=== PATIENT | male | born 1945 | race Caucasian/White ===

== ENCOUNTER 2017-01-12 12:29 | Outpatient (CLI) | payer MEDICARE, OTHER ==
[2017-01-12 12:51] LABS: BASOPHILS % 0.7 (0.0-1.5); EOSINOPHILS % 0.3 % (0.0-6.8); MEAN CORPUSCULAR HEMOGLOBIN 32.4 pg (28.0-34.0); MEAN CORPUSCULAR VOLUME 97.3 fl (80.0-100.0); MONOCYTES % 3.8 % (0.0-11.0); NEUTROPHILS # 4.8 # k/uL (1.4-7.7)
[2017-01-12 12:59] LABS: APPEARANCE,URINE Clear (CLEAR); COLOR,URINE Yellow (YELLOW); OCCULT BLOOD,URINE Negative (NEGATIVE); UROBILINOGEN URINE 0.2 Eu (0.2-1.0)
[2017-01-12 13:16] LABS: eGFR (African) > 60; eGFR (Non-African) 58
[2017-01-12 13:19] LABS: AMORPHOUS SEDIMENT,UR FEW (NEGATIVE)
--- NOTE | 2017-01-12 15:17 | Diagnostic Imaging Report ---
SHERIF OBRIEN [facility] [address] [facility] [address] [place], [place]. [address] Report Submission Date: Jan 12, 2017 1:27:43 PM CDT Patient Study Name: JESUS MARTINEZ Date: Jan 12, 2017 1:00:13 PM CDT Modality Type: CT\SR Gender: M Description: CT BRAIN W/O CONTRAST : 49 Institution: [facility] Physician: SHERIF OBRIEN Examination: CT head without contrast History: Syncope, Fall Comparison exam: None available Technique: Noncontrast head CT protocol. Findings: Ventricles and sulci are mildly prominent, though consistent for patient age. Cerebrocerebellar parenchyma demonstrates periventricular low attenuation consistent with small vessel disease. No evidence for parenchymal hemorrhage. No evidence for mass or mass effect. No midline shift. No extra axial fluid collections. Partial visualization of the paranasal sinuses demonstrates mild mucous thickening. Mastoid air cells, orbits, and skull without gross regularity. Right superior orbital soft tissue hematoma. Impression: Age related changes. No acute parenchymal process. No hemorrhage. If symptoms persist, consider obtaining MRI brain to further evaluate. Right superior orbital soft tissue hematoma. If suspect orbital fracture, consider obtaining CT facial bone examination. Electronically signed on Jan 12, 2017 1:27:43 PM CDT by: Vito ODEN
== END 2017-01-12 12:30 ==
LOC: RAD 12:29
PROVIDERS: ATTEND Family Medicine
DX: R55 Syncope and collapse (principal)
CPT/HCPCS: 36415; 70450; 80053; 81002; 85025

== ENCOUNTER 2017-01-19 10:14 | Outpatient (CLI) | payer MEDICARE, OTHER ==
[2017-01-19 10:55] LABS: eGFR (African) > 60; eGFR (Non-African) > 60
== END 2017-01-19 10:30 ==
LOC: LAB 10:14
PROVIDERS: ATTEND Family Medicine
DX: E87.1 Hypo-osmolality and hyponatremia (principal)
CPT/HCPCS: 36415; 80048

== ENCOUNTER 2018-02-02 11:06 | Outpatient (CLI) | payer MEDICARE, OTHER ==
[2018-02-02 11:59] LABS: eGFR (African) > 60; eGFR (Non-African) > 60
== END 2018-02-02 11:08 ==
LOC: LAB 11:06
PROVIDERS: ATTEND Family Medicine
DX: I10 Essential (primary) hypertension (principal)
CPT/HCPCS: 36415; 80048

== ENCOUNTER 2019-02-08 10:35 | Outpatient (CLI) | payer MEDICARE, OTHER ==
[2019-02-08 11:19] LABS: HDL 73 mg/dL (>40); eGFR (Non-African) > 60
== END 2019-02-08 10:37 ==
LOC: LAB 10:35
PROVIDERS: ATTEND Family Medicine
DX: I10 Essential (primary) hypertension (principal)
CPT/HCPCS: 36415; 80053; 80061

== ENCOUNTER 2019-06-13 08:53 | Day surgery (SDC) | payer MEDICARE, OTHER ==
[~2019-06-13 08:53] MED LIST: LACTATED RINGERS 1,000 ML IV.SOLN IV ONE; LIDOCAINE HCL 2% PF 100MG/5ML VIAL IJ ONE; PROPOFOL 200 MG/20 ML VIAL IV ONE
--- NOTE | 2019-06-15 13:43 | GI Report ---
DATE OF PROCEDURE: 06/13/2019 REFERRING PHYSICIAN: Dr. Kurtz PROCEDURE PERFORMED: Colonoscopy. SURGEON: Favio Bautista M.D., FKimani.CHeP. INDICATION FOR PROCEDURE: The patient is a 73-year-old man whose last colonoscopy was about 15 years ago in [place]. He denies any blood in the stool. He says he has 2-3 soft to loose stools in the morning and then is okay the rest of the day. There was some question of colitis 15 years ago but he was never apparently put on medication. He denies family history of colorectal cancer. PROCEDURE MEDICATION: Propofol, as per Anesthesia. DESCRIPTION OF PROCEDURE: An Olympus video colonoscope was advanced to the rectum. The patient has diffuse ulceration from the rectum all the way to the cecum. There are no skip areas. It is moderately involved throughout the whole colon. Random biopsies were taken throughout the whole colon from the cecum all the way back to the rectum. The patient tolerated the procedure well. FINDINGS AND RECOMMENDATIONS: 1. Pancolitis looks like chronic ulcerative colitis, biopsies pending. Would start him on a mesalamine preparation at least 2.4 g daily, generic is fine. Generic mesalamine slow release at 1.2 g, 2 in the morning or if it doesnt cover that balsalazide 750 mg 6 a day is another option he would take it 3 twice daily or twice daily, depending upon his insurance coverage. Pending the biopsies he is going to need to be on this chronically. May eventually require higher dose if it doesnt respond. 2. Consider relook at his colon in 3-5 years. FAVIO BAUTISTA M.D., F.A.C.P. DESTINI/mohamud Job#: [id number] Cc: Dr. Kurtz [facility]
== END 2019-06-13 11:28 | disposition home or self-care (01) ==
LOC: OPSURG 08:53
PROVIDERS: ATTEND Internal Medicine Gastroenterology
DX: K51.00 Ulcerative (chronic) pancolitis without complications (principal)
CPT/HCPCS: 45380; J2001; J2704; J7120